=== PATIENT | male | born 1960 | race Caucasian/White ===

== ENCOUNTER 2016-09-16 08:57 | Emergency (ER) | payer OTHER ==
[~2016-09-16] VITALS: Ht 172.7 cm; Wt 81.6 kg
--- NOTE | 2016-09-16 10:19 | REP ---
Clinical: Foreign body. Technique: AP and lateral soft tissue neck radiographs. Findings: The patient is status post anterior fusion at the C6-7. Degenerative changes and anterior osteophyte and disc space narrowing at the C5-6 level. The prevertebral soft tissues are normal and without swelling, subcutaneous emphysema, or radiodense foreign body. Impression: No radiodense foreign body appreciated. Signed by Ellis Carrizales MD 09/16/2016 10:11 A
[2016-09-16] MEDS ORDERED: LIDO2SOL10 MT (10:33)
[2016-09-16 10:39] VITALS: BP 148/91
== END 2016-09-16 10:46 | disposition home or self-care (01) ==
LOC: M ED 09:55
DX: J02.9 Acute pharyngitis, unspecified (principal)